=== PATIENT | female | born 1985 | race Hispanic/Latino ===

== ENCOUNTER 2016-12-03 07:18 | Day surgery (SDC) | payer OTHER ==
[2016-11-28 11:56] VITALS: BMI 24.3
[2016-12-03] MEDS ORDERED: Lactated Ringer's 1,000 ML IV ONE (08:34)
[2016-12-03] MEDS ORDERED: Propofol 10 mg/ml Inj (20 ML) ONE (09:02)
[2016-12-03] MEDS ORDERED: Midazolam 2 MG/2 ML VIAL ONE (09:04)
[2016-12-03] MEDS ORDERED: Lidocaine 4% (Laryng-O-Jet) Kit MM ONE (09:05)
[2016-12-03] MEDS ORDERED: Succinylcholine 200 mg/10 ml Inj IV ONE (09:09)
[2016-12-03] MEDS ORDERED: Dexamethasone 4 mg/1 ml ONE (09:52)
[2016-12-03] MEDS ORDERED: HYDROmorphone 0.5 mg/0.5 ml ISec IVP PRN (10:15)
[2016-12-03] MEDS ORDERED: Lactated Ringer's 1,000 ML IV SCH (10:15)
[2016-12-03] MEDS ORDERED: Oxycodone/Acetaminophen 5/325 mg Tab PO PRN (11:26)
[2016-12-03 12:01] VITALS: RESP 18
[2016-12-03 12:44] VITALS: BP 108/76; PULSE 58; TEMP 97.2; O2SAT 98
--- NOTE | 2016-12-03 23:46 | OP ---
PROCEDURE DATE: PREOPERATIVE DIAGNOSIS: Retained intrauterine device. POSTOPERATIVE DIAGNOSIS: Retained intrauterine device. PROCEDURE: Hysteroscopic removal of intrauterine device. SURGEON: Amrik Azar MD ANESTHESIA ADMINISTERED BY: Dr. Walsh. ESTIMATED BLOOD LOSS: Minimal. URINE OUTPUT: The patient was straight catheterized prior to starting the procedure. FLUIDS: The patient received approximately 100 mL of D5 LR intraoperatively. OPERATIVE FINDINGS: Normal external female genitalia, uterus anteverted, no adnexal masses, cervix was smooth, no IUD strings visualized. On hysteroscopic examination, the IUD was noted be to in the uterine cavity, the strings were coiled around the base, both ostia were visualized. DESCRIPTION OF PROCEDURE: After informed consent was obtained, the patient was taken to the operating room where she was given general anesthesia. She was then placed in a modified lithotomy position. She was prepped and draped in normal sterile fashion. A red rubber catheter was then inserted into the bladder and drained the bladder of its contents. A weighted speculum was inserted into the vagina. The cervix was visualized, grasped with a single tooth tenaculum. The cervix was then gently dilated. The hysteroscope was then inserted to the uterine cavity. The uterine cavity was surveyed with findings noted above. Pictures were taken for documentation. A forceps was then used to grasp the IUD and the IUD was extracted through the cervical canal. All instruments were then removed from the vagina. Hemostasis was noted at the tenaculum site and the patient was awakened from general anesthesia and taken to the recovery room in awake and stable condition. All instrument counts are correct x2. Amrik Azar MD
== END 2016-12-03 12:50 | disposition home or self-care (01) ==
LOC: H.OPSURG 07:18
PROVIDERS: ATTEND Obstetrics & Gynecology Gynecology
DX: Z97.5 Presence of (intrauterine) contraceptive device (principal)
CPT/HCPCS: 58579; 88300; J0330; J1100; J1170; J1885; J2001; J2250; J2405; J2704; J3010; J7030; J7120